=== PATIENT | female | born 1990 | race American Indian/Alaskan Native ===

== ENCOUNTER 2019-06-19 08:01 | Emergency (ER) | payer OTHER ==
[2019-06-19 08:13] VITALS: BP 127/90
[2019-06-19 09:06] LABS: HCG Qualitative,Urine Negative (Negative)
[2019-06-19 09:07] LABS: Bilirubin,Urine NEG (Negative); Blood,Urine NEG (Negative); Color,Urine Yellow (Yellow); Protein,Urine <15 mg/dL mg/dL (Negative); Urobilinogen,Urine < 2.0 mg/dL (<2.0)
--- NOTE | 2019-06-19 09:43 | Emergency Department Report ---
ED Female HPI - General Chief complaint: Urogenital-Female Stated complaint: YEAST INFECTION/BACK SPASMS Time Seen by Provider: 06/19/19 08:25 Source: patient Mode of arrival: Ambulatory Limitations: No Limitations - History of Present Illness Initial comments: This is a 28-year-old female nontoxic, well nourished in appearance, no acute signs of distress presents to the ED with c/o of vaginal itching and discharge. Patient stated she is not sexually active and is not concerned about any STDs. Stated she would rather not get tested for STDs and she is not concerned. Patient denies any vaginal pain or swelling. Patient denies any vaginal ulcers or lesions. Patient denies any pelvic or abdominal pain. Patient denies any nausea, vomiting, chest pain, shortness of breathe, fever, chills, headache, back pain, numbness, tingling, stiff neck. Patient denies any urinary symptoms. Patient denies any allergies or PMH. MD Complaint: vaginal discharge -: week(s) (1) Radiation: non-radiating Severity scale (0 -10): 0 Consistency: constant Improves with: none Worsens with: none Are you Now?: No Associated Symptoms: vaginal discharge. denies: vaginal bleeding, abdominal pain, nausea/vomiting, fever/chills, headaches, loss of appetite, dysuria, hematuria, rash, seizure, shortness of breath, syncope, weakness - Related Data Sexually active: No Previous Rx's Medication Instructions Recorded Last Taken Type Fluconazole [Diflucan TAB] 150 mg PO ONCE #1 tablet 06/19/19 Unknown Rx metroNIDAZOLE [Flagyl] 500 mg PO Q12HR #14 tab 06/19/19 Unknown Rx Allergies Allergy/AdvReac Type Severity Reaction Status Date / Time No Known Allergies Allergy Unverified 06/19/19 08:06 ED Review of Systems ROS: Stated complaint: YEAST INFECTION/BACK SPASMS Other details as noted in HPI Constitutional: denies: chills, fever Eyes: denies: eye pain, eye discharge, vision change ENT: denies: ear pain, throat pain Respiratory: denies: cough, shortness of breath, wheezing Cardiovascular: denies: chest pain, palpitations Endocrine: no symptoms reported Gastrointestinal: denies: abdominal pain, nausea, diarrhea Genitourinary: discharge. denies: urgency, dysuria, frequency, hematuria, abnormal menses, dyspareunia Musculoskeletal: denies: back pain, joint swelling, arthralgia Skin: denies: rash, lesions Neurological: denies: headache, weakness, paresthesias Psychiatric: denies: anxiety, depression Hematological/Lymphatic: denies: easy bleeding, easy bruising ED Past Medical Hx - Past Medical History Previous Medical History?: Yes Hx Diabetes: Yes (type 1) Additional medical history: hep c, - Surgical History Past Surgical History?: Yes Additional Surgical History: C section - Social History Smoking Status: Never Smoker Substance Use Type: None - Medications Home Medications: Home Medications Medication Instructions Recorded Confirmed Last Taken Type Fluconazole [Diflucan TAB] 150 mg PO ONCE #1 tablet 06/19/19 Unknown Rx metroNIDAZOLE [Flagyl] 500 mg PO Q12HR #14 tab 06/19/19 Unknown Rx ED Physical Exam - General Limitations: No Limitations General appearance: alert, in no apparent distress - Head Head exam: Present: atraumatic, normocephalic - Neck Neck exam: Present: normal inspection, full ROM. Absent: tenderness, meningismus, lymphadenopathy - GI/Abdominal GI/Abdominal exam: Present: soft. Absent: distended, tenderness - External exam: Present: normal external exam, other (steam blocker Kalyn RN present during exam). Absent: erythema, swelling, lesions, lacerations, ecchymosis, bleeding Speculum exam: Present: cervical discharge, other (steam blocker Kalyn RN present during exam). Absent: erythema, vaginal discharge, vaginal bleeding, foreign body, tissue, laceration Bi-manual exam: Present: normal bi-manual exam, other (steam blocker Kalyn RN present during exam). Absent: cervical motion tendernes, adnexal tenderness, adnexal mass, uterine enlargement, uterine tenderness - Extremities Exam Extremities exam: Present: normal inspection, full ROM - Back Exam Back exam: Present: normal inspection, full ROM. Absent: tenderness, CVA tenderness (R), CVA tenderness (L), muscle spasm, paraspinal tenderness, vertebral tenderness, rash noted - Neurological Exam Neurological exam: Present: alert, oriented X3, normal gait - Psychiatric Psychiatric exam: Present: normal affect, normal mood - Skin Skin exam: Present: warm, dry, intact, normal color. Absent: rash ED Course Vital Signs 06/19/19 08:10 Temperature 97.8 F Pulse Rate 95 H Respiratory 18 Rate Blood Pressure 127/90 O2 Sat by Pulse 97 Oximetry - Reevaluation(s) Reevaluation #1: 06/19/19 09:42 Patient is speaking in full sentences with no signs of distress noted. ED Medical Decision Making - Medical Decision Making This is a 28-year-old female that presents with BV and vaginal yeast. Patient is stable was examined by me. There is no abdominal tenderness. No pelvic pain. UA obtained. Wet prep obtained. Patient refused gonorrhea chlamydia swabs as she stated she is not sexually active and is not concerned. Patient was instructed to Follow-up with a primary care doctor in 3-5 days or if symptoms worsen and continue return to emergency room as soon as possible. At time of discharge, the patient does not seem toxic or ill in appearance. No acute signs of distress noted. Patient agrees to discharge treatment plan of care. No further questions noted by the patient. Critical care attestation.: If time is entered above; I have spent that time in minutes in the direct care of this critically ill patient, excluding procedure time. ED Disposition Clinical Impression: Bacterial vaginosis, Yeast vaginitis Disposition: DC-01 TO HOME OR SELFCARE Is pt being admited?: No Does the pt Need Aspirin: No Condition: Stable Instructions: Bacterial Vaginosis (ED), Vulvovaginal Candidiasis (ED) Additional Instructions: Follow-up with a primary care doctor in 3-5 days or if symptoms worsen and continue return to emergency room as soon as possible. Prescriptions: Fluconazole [Diflucan TAB] 150 mg PO ONCE #1 tablet metroNIDAZOLE [Flagyl] 500 mg PO Q12HR #14 tab Referrals: BLADIMIR BERTRAND MD [Primary Care Provider] - 3-5 Days DENIA DU MD [Staff Physician] - 3-5 Days [facility] [Outside] - 3-5 Days [facility] [Outside] - 3-5 Days Forms: Work/School Release Form(ED)
== END 2019-06-19 10:39 | disposition home or self-care (01) ==
LOC: ED 08:01
DX: N76.0 Acute vaginitis (principal); B96.89 Other specified bacterial agents as the cause of diseases classified elsewhere
CPT/HCPCS: 81001; 81025; 87210

== ENCOUNTER 2020-07-30 22:18 | Emergency (ER) | payer OTHER ==
[2020-07-31 01:19] LABS: HCG Qualitative,Urine Negative (Negative)
[2020-07-31 02:26] VITALS: BP 113/78
[2020-07-31] MEDS ORDERED: LIDOCAINE-MPF (1%) 10 MG/1 ML VIAL 5 ML INFILTRATI ONE (02:26)
[2020-07-31] MEDS ORDERED: AZITHROMYCIN 250 MG TAB PO ONE (02:26)
[2020-07-31 02:59] LABS: Bilirubin,Urine NEG (Negative); Blood,Urine LG (Negative); Color,Urine Red (Yellow); Urobilinogen,Urine < 2.0 mg/dL (<2.0)
[2020-07-31 03:00] LABS: Bacteria,Urine 1+ /HPF (Negative)
[2020-07-31 03:01] LABS: Protein,Urine >500 mg/dL (Negative); RBC,Urine > 182.0 /HPF (0.0-6.0)
[2020-07-31] MEDS ORDERED: KETOROLAC 60 MG/2 ML INJ IM ONE (03:17)
[2020-07-31] MEDS ORDERED: SULFAMETHOXAZOLE/TRIMETHOPRIM 800/160MG DS TAB PO ONE (03:25)
--- NOTE | 2020-07-31 03:39 | Emergency Department Report ---
ED Female HPI - General Chief complaint: Urogenital-Female Stated complaint: BLOOD IN URINE Time Seen by Provider: 07/31/20 02:32 Source: patient Mode of arrival: Ambulatory Limitations: No Limitations - History of Present Illness MD Complaint: vaginal discharge, dysuria, pelvic pain (PRESSURE) -: Sudden, days(s) (2) - Related Data Previous Rx's Medication Instructions Recorded Last Taken Type Fluconazole (Nf) [Diflucan TAB] 150 mg PO ONCE #1 tablet 06/19/19 Unknown Rx metroNIDAZOLE [Flagyl] 500 mg PO Q12HR #14 tab 06/19/19 Unknown Rx Naproxen 500 mg PO Q8H #30 tablet 07/31/20 Unknown Rx Ondansetron [Zofran Odt] 4 mg PO Q6HR PRN #15 tab.rapdis 07/31/20 Unknown Rx cephALEXin [Keflex] 500 mg PO Q12HR PRN #24 cap 07/31/20 Unknown Rx Allergies Allergy/AdvReac Type Severity Reaction Status Date / Time No Known Allergies Allergy Unverified 06/19/19 08:06 ED Review of Systems ROS: Stated complaint: BLOOD IN URINE Other details as noted in HPI ED Past Medical Hx - Past Medical History Hx Diabetes: Yes (type 1) Additional medical history: hep c, - Surgical History Additional Surgical History: C section - Social History Smoking Status: Current Every Day Smoker Substance Use Type: Alcohol - Medications Home Medications: Home Medications Medication Instructions Recorded Confirmed Last Taken Type Fluconazole (Nf) [Diflucan TAB] 150 mg PO ONCE #1 tablet 06/19/19 Unknown Rx metroNIDAZOLE [Flagyl] 500 mg PO Q12HR #14 tab 06/19/19 Unknown Rx Naproxen 500 mg PO Q8H #30 tablet 07/31/20 Unknown Rx Ondansetron [Zofran Odt] 4 mg PO Q6HR PRN #15 tab.rapdis 07/31/20 Unknown Rx cephALEXin [Keflex] 500 mg PO Q12HR PRN #24 cap 07/31/20 Unknown Rx ED Physical Exam - General Limitations: No Limitations ED Course Vital Signs 07/30/20 22:27 Temperature 98.5 F Pulse Rate 94 H Respiratory 18 Rate Blood Pressure 113/78 O2 Sat by Pulse 95 Oximetry Critical care attestation.: If time is entered above; I have spent that time in minutes in the direct care of this critically ill patient, excluding procedure time. ED Disposition Clinical Impression: Acute urinary tract infection, STD (female) Disposition: - TO HOME OR SELFCARE Is pt being admited?: No Does the pt Need Aspirin: No Condition: Stable Instructions: Antibiotic Medicine, Adult, [id number], and Urinary Tract Infection Additional Instructions: Take medication with food, drink plenty of fluids and follow-up with your primary care physician in 7 to 10 days for reevaluation. Return to the ED immediately if symptoms get worse. Prescriptions: cephALEXin [Keflex] 500 mg PO Q12HR PRN #24 cap PRN Reason: Pain , Severe (7-10) Naproxen 500 mg PO Q8H #30 tablet Ondansetron [Zofran Odt] 4 mg PO Q6HR PRN #15 tab.rapdis PRN Reason: Nausea Referrals: [facility] [Provider Group] - 3-5 Days Time of Disposition: 03:38 Print Language: LITHUANIAN
--- NOTE | 2020-07-31 03:43 | Emergency Department Report ---
ED Female HPI - General Chief complaint: Urogenital-Female Stated complaint: BLOOD IN URINE Time Seen by Provider: 07/31/20 02:32 Source: patient Mode of arrival: Ambulatory Limitations: No Limitations - History of Present Illness Initial comments: 29-year-old female with a past medical history of type 1 diabetes and hepatitis C with previous presents to the hospital complaining of "blood in her urine" since yesterday and pelvic pain x2 days. Patient states she is passing a lot of blood with clot however, blood is also the underwear. She admits that she does not know if blood is coming from her urine or her vagina. She denies dysuria or urinary frequency. She complains of mid and left-sided abdominal pain and also reports a history of ovarian cyst. Patient states she had a menstrual cycle early June x1 week but had a second menstrual cycle/bleeding episode for a week at the end of June. She states she has been under a lot of stress and is not unusual for her to have additional bleeding episodes when she is stressed out. She also admits to having sex with 2 partners currently and not using condoms. Patient had 1 episode nausea vomiting while waiting to be evaluated but nausea and vomiting have since resolved. She does not have a [facility] doctor - Related Data Previous Rx's Medication Instructions Recorded Last Taken Type Fluconazole (Nf) [Diflucan TAB] 150 mg PO ONCE #1 tablet 06/19/19 Unknown Rx Ibuprofen [Motrin] 600 mg PO Q8H PRN #20 tablet 07/31/20 Unknown Rx Ondansetron [Zofran Odt] 4 mg PO Q6HR PRN #15 tab.rapdis 07/31/20 Unknown Rx Sulfamethoxazole/Trimethoprim 1 each PO BID #10 tablet 07/31/20 Unknown Rx [Bactrim DS TAB] medroxyPROGESTERone ACETATE 10 mg PO DAILY #5 tablet 07/31/20 Unknown Rx [Provera] metroNIDAZOLE [Flagyl TAB] 500 mg PO Q12HR #14 tab 07/31/20 Unknown Rx Allergies Allergy/AdvReac Type Severity Reaction Status Date / Time No Known Allergies Allergy Unverified 06/19/19 08:06 ED Review of Systems ROS: Stated complaint: BLOOD IN URINE Other details as noted in HPI Comment: All other systems reviewed and negative ED Past Medical Hx - Past Medical History Hx Diabetes: Yes (type 1) Additional medical history: hep c, - Surgical History Additional Surgical History: C section - Social History Smoking Status: Current Every Day Smoker Substance Use Type: Alcohol - Medications Home Medications: Home Medications Medication Instructions Recorded Confirmed Last Taken Type Fluconazole (Nf) [Diflucan TAB] 150 mg PO ONCE #1 tablet 06/19/19 Unknown Rx Ibuprofen [Motrin] 600 mg PO Q8H PRN #20 tablet 07/31/20 Unknown Rx Ondansetron [Zofran Odt] 4 mg PO Q6HR PRN #15 tab.rapdis 07/31/20 Unknown Rx Sulfamethoxazole/Trimethoprim 1 each PO BID #10 tablet 07/31/20 Unknown Rx [Bactrim DS TAB] medroxyPROGESTERone ACETATE 10 mg PO DAILY #5 tablet 07/31/20 Unknown Rx [Provera] metroNIDAZOLE [Flagyl TAB] 500 mg PO Q12HR #14 tab 07/31/20 Unknown Rx ED Physical Exam - General Limitations: No Limitations - Other Other exam information: General: No acute distress Head: Atraumatic Eyes: normal appearance ENT: Moist mucous membranes Neck: Normal appearance, no midline tenderness Chest: Clear to auscultation bilaterally CV: Regular rate and rhythm Abdomen: Soft, normal bowel sounds, suprapubic and left lower quadrant tendern ess, no rebound or guard : Vaginal bleeding noted on exam, no external lesions, no CMT or adnexal tenderness Back: Normal inspection Extremity: Normal inspection, full range of motion Neuro: Alert O x 3, no facial asymmetry, speech clear, no gross motor sensory deficit Psych: Appropriate behavior Skin: No rash ED Course Vital Signs 07/30/20 22:27 Temperature 98.5 F Pulse Rate 94 H Respiratory 18 Rate Blood Pressure 113/78 O2 Sat by Pulse 95 Oximetry ED Medical Decision Making - Lab Data Result diagrams: 07/31/20 03:28 Lab Results 07/31/20 07/31/20 07/31/20 Range/Units 00:12 02:20 03:28 WBC 4.6 (4.5-11.0) K/mm3 RBC 3.96 (3.65-5.03) M/mm3 Hgb 12.5 (10.1-14.3) gm/dl Hct 36.0 (30.3-42.9) % MCV 91 (79-97) fl MCH 32 (28-32) pg MCHC 35 H (30-34) % RDW 12.7 L (13.2-15.2) % Plt Count 213 (140-440) K/mm3 Urine Color Red (Yellow) Urine Turbidity Cloudy (Clear) Urine pH 6.0 (5.0-7.0) Ur Specific [place] 1.015 (1.003-1.030) Urine Protein >500 (Negative) mg/dL Urine Glucose (UA) >=500 (Negative) mg/dL Urine Ketones Neg (Negative) mg/dL Urine Blood Lg (Negative) Urine Nitrite Neg (Negative) Urine Bilirubin Neg (Negative) Urine Urobilinogen < 2.0 (<2.0) mg/dL Ur Leukocyte Esterase Neg (Negative) Urine WBC (Auto) 21.0 H (0.0-6.0) /HPF Urine RBC (Auto) > 182.0 (0.0-6.0) /HPF Urine Bacteria (Auto) 1+ (Negative) /HPF Urine HCG, Qual Negative (Negative) - Medical Decision Making Patient presents to the hospital with initial complaint of hematuria however, upon examination is evident that patient is indeed having vaginal bleeding. Patient has a history of dysfunctional uterine bleeding related to stress and also has a history of pelvic pain related to ovarian cyst. At this time patient is not with normal hemoglobin. Wet prep and gonorrhea chlamydia cultures obtained. Patient empirically treated for gonorrhea chlamydia given sexual history. Toradol provided for pain. Patient will be placed on Provera for DUB, NSAIDs, encouraged to take multivitamins with iron, empiric treatment for UTI however, likely contaminated given presence of vaginal blood, and follow-up with [facility] for further outpatient work-up and evaluation Critical Care Time: No Critical care attestation.: If time is entered above; I have spent that time in minutes in the direct care of this critically ill patient, excluding procedure time. ED Disposition Clinical Impression: Acute urinary tract infection, STD (female), DUB (dysfunctional uterine bleeding), Urine WBC increased, Pelvic pain, Bacterial vaginosis Disposition: TO HOME OR SELFCARE Is pt being admited?: No Does the pt Need Aspirin: No Condition: Stable Instructions: Abnormal Uterine Bleeding, Antibiotic Medicine, Adult, Easy-to- Read, Urinary Tract Infection, Adult, [id number], and Urinary Tract Infection, Bacterial Vaginosis (ED), Bacterial Vaginosis, [id number] Additional Instructions: Take the medication as prescribed. Make sure you take a [id number] women multivitamin that has iron. follow-up with your doctor or doctor/clinic provided. Return if symptoms worsen as indicated by your discharge instructions. Your gonorrhea and Chlamydia tests have been sent and take 2-3 days to result. You may obtain your results by going to medical records with your photo ID or yo ur follow-up physician may request the results be sent to his or her office with your written permission. You did receive treatment for gonorrhea and chlamydia during your ED visit Prescriptions: Sulfamethoxazole/Trimethoprim [Bactrim DS TAB] 1 each PO BID #10 tablet metroNIDAZOLE [Flagyl TAB] 500 mg PO Q12HR #14 tab Ibuprofen [Motrin] 600 mg PO Q8H PRN #20 tablet PRN Reason: Pain medroxyPROGESTERone ACETATE [Provera] 10 mg PO DAILY #5 tablet Ondansetron [Zofran Odt] 4 mg PO Q6HR PRN #15 tab.rapdis PRN Reason: Nausea Referrals: [facility] [Provider Group] - 3-5 Days [facility] [Provider Group] - 3-5 Days Forms: STI Treatment and Prevention Time of Disposition: 04:24 Print Language: SERBIAN
[2020-07-31 04:01] LABS: Hemoglobin 12.5 gm/dl (10.1-14.3); Mean Corpuscular HGB Conc 35 % (30-34); Mean Corpuscular Volume 91 fl (79-97); Platelet Count 213 K/mm3 (140-440); Red Blood Count 3.96 M/mm3 (3.65-5.03); Red Cell Distribution Width 12.7 % (13.2-15.2)
== END 2020-07-31 04:30 | disposition home or self-care (01) ==
LOC: ED 22:18
DX: N39.0 Urinary tract infection, site not specified (principal); A64 Unspecified sexually transmitted disease; N93.8 Other specified abnormal uterine and vaginal bleeding; R10.2 Pelvic and perineal pain; N76.0 Acute vaginitis; B96.89 Other specified bacterial agents as the cause of diseases classified elsewhere; E11.9 Type 2 diabetes mellitus without complications; F17.200 Nicotine dependence, unspecified, uncomplicated; Z79.899 Other long term (current) drug therapy
CPT/HCPCS: 36415; 81001; 81025; 85027; 87086; 87210; 87591; 96372; 99283; J0696; J1885